=== PATIENT | male | born 1960 | race Caucasian/White ===

== ENCOUNTER 2019-09-18 05:25 | Observation (INO) | payer OTHER ==
[~2019-09-18] VITALS: Ht 180.3 cm; Wt 66.7 kg
[2019-09-18] MEDS ORDERED: CARVEDILOL12.5 MG PO (05:55)
[2019-09-18] MEDS ORDERED: OMEPRAZOLE20 MG PO (05:55)
[2019-09-18 06:33] LABS: BASOPHILS ABSOLUTE AUTO 0.03 K/mm3 (0.00-0.23); BASOPHILS PERCENT AUTO 1 % (0-2); EOSINOPHILS ABSOLUTE AUTO 0.04 K/mm3 (0.00-0.68); EOSINOPHILS PERCENT AUTO 1 % (0-6); Hematocrit 34.6 % (37.0-53.0); Hemoglobin 11.6 g/dL (13.5-17.5); IMMATURE GRAN ABSOLUTE AUTO 0.02 K/mm3 (0.00-0.10); IMMATURE GRAN PERCENT AUTO 0 % (0-1); LYMPHOCYTES ABSOLUTE AUTO 2.34 K/mm3 (0.84-5.20); LYMPHOCYTES PERCENT AUTO 40 % (21-46); MONOCYTES ABSOLUTE AUTO 0.42 K/mm3 (0.16-1.47); MONOCYTES PERCENT AUTO 7 % (4-13); Mean Corpuscular HGB 36.1 pg (26.0-34.0); Mean Corpuscular HGB Conc 33.5 g/dL (31.5-36.5); Mean Corpuscular Volume 108 fL (80-100); Mean Platelet Volume 9.7 fL (9.1-12.4); NEUTROPHILS ABSOLUTE AUTO 3.01 K/mm3 (1.96-9.15); NEUTROPHILS PERCENT AUTO 51 % (41-73); Platelet Count 114 K/mm3 (150-400); RDW Standard Deviation 47.3 fL (35.1-46.3); Red Blood Cell Count 3.21 M/mm3 (4.30-5.90); White Blood Cell Count 5.86 K/mm3 (4.00-11.30)
[2019-09-18 06:48] LABS: Alanine Aminotransfer (ALT/SGP 49 U/L (12-78); Albumin, Blood 3.4 g/dL (3.4-5.0); Alk Phos 49 U/L (50-136); Anion Gap 7 mmol/L (6-16); Aspartate Aminotrans (AST/SGOT 42 U/L (12-37); Bilirubin, Total 0.4 mg/dL (0.1-1.0); Blood Urea Nitrogen 13 mg/dL (8-24); CO2, Blood 24 mmol/L (21-32); Chloride, Blood 112 mmol/L (98-108); Creatinine, Blood 0.72 mg/dL (0.60-1.20); Globulin, Blood 3.4 g/dL (2.2-4.0); Glomerular Filtration Rate >60 (60-); Glucose, Blood 96 mg/dL (70-99); Potassium, Blood 3.9 mmol/L (3.5-5.5); Sodium, Blood 143 mmol/L (136-145); Total Protein, Blood 6.8 g/dL (6.4-8.2)
[2019-09-18 09:10] LABS: Magnesium, Blood 2.2 mg/dL (1.6-2.4)
[2019-09-18 11:56] LABS: U Amphetamine Screen Not Detected; U Barbituate Screen Not Detected; U Benzodiazapine Screen Not Detected; U Buprenorphine Screen Not Detected; U Cannabinoids Screen DETECTED; U Cocaine Screen Not Detected; U Methadone Screen Not Detected; U Methamphetamine Screen Not Detected; U Opiates Screen DETECTED; U Oxycodone Screen Not Detected; U Phencyclidine Screen Not Detected; U Propoxyphene Screen Not Detected
--- NOTE | 2019-09-18 14:45 | NUR ---
History, Chart, Medications and Allergies reviewed before start of procedure.Patient confirms NPO status and agrees with scheduled surgery. VERIFIED LEFT SIDE. EKG DONE PER DR. GILBERT.
--- NOTE | 2019-09-18 18:47 | NUR ---
SHIFT SUMMARY POD 0 S/P ORIF TO LEFT PATELLA. PT ARRIVED FROM PACU AT APPROX 1800 W/ VSS AND A/O. IMMOBILIZER AND KISHOR WRAP IN PLACE. DENIES N/V AND TOLERATING PO INTAKE. PAIN MANAGED WITH 1 PAIN PILL. AWAITING POST VOID. CURRENTLY RESTING IN BED WITH CALL LIGHT IN REACH. WILL CONT. TO MONITOR AND GIVE REPORT TO ONCOMING RN.
--- NOTE | 2019-09-19 04:15 | NUR ---
SHIFT SUMMARY PT IS A/O X4, TOLERATING PO INTAKE AND VOIDING. PT HAS BEEN REPOSITIONED MULTIPLE TIMES THIS SHIFT AND DID STAND AT SIDE OF BED WITH WALKER AND STANDBY ASSIST. IMMOBILIZER HAS BEEN IN PLACE ON LEFT LEG. PT HAS SHOWED NO SIGNS OF ETOH WITHDRAWAL. PAIN HAS BEEN MANAGED WITH PO PAIN MEDS, HOWEVER PT DID REQUIRE A DOSE OF IV PAIN MED FOR BREAKTHROUGH PAIN - SEE EMAR. ASSISTED WITH ADL'S PRN.
[2019-09-19 04:27] LABS: BASOPHILS ABSOLUTE AUTO 0.02 K/mm3 (0.00-0.23); BASOPHILS PERCENT AUTO 0 % (0-2); EOSINOPHILS PERCENT AUTO 0 % (0-6); Hematocrit 27.1 % (37.0-53.0); Hemoglobin 9.3 g/dL (13.5-17.5); IMMATURE GRAN ABSOLUTE AUTO 0.02 K/mm3 (0.00-0.10); IMMATURE GRAN PERCENT AUTO 0 % (0-1); LYMPHOCYTES ABSOLUTE AUTO 1.81 K/mm3 (0.84-5.20); LYMPHOCYTES PERCENT AUTO 30 % (21-46); MONOCYTES ABSOLUTE AUTO 0.66 K/mm3 (0.16-1.47); MONOCYTES PERCENT AUTO 11 % (4-13); Mean Corpuscular HGB 36.5 pg (26.0-34.0); Mean Corpuscular HGB Conc 34.3 g/dL (31.5-36.5); Mean Corpuscular Volume 106 fL (80-100); Mean Platelet Volume 9.9 fL (9.1-12.4); NEUTROPHILS PERCENT AUTO 59 % (41-73); Platelet Count 90 K/mm3 (150-400); RDW Coefficient Variation 11.8 % (11.7-14.2); Red Blood Cell Count 2.55 M/mm3 (4.30-5.90); White Blood Cell Count 6.11 K/mm3 (4.00-11.30)
[2019-09-19 04:58] LABS: Alanine Aminotransfer (ALT/SGP 30 U/L (12-78); Albumin, Blood 2.9 g/dL (3.4-5.0); Alk Phos 41 U/L (50-136); Anion Gap 7 mmol/L (6-16); Aspartate Aminotrans (AST/SGOT 26 U/L (12-37); Bilirubin, Total 0.7 mg/dL (0.1-1.0); Blood Urea Nitrogen 10 mg/dL (8-24); Bun/Creatinine Ratio 14.6 (12.0-20.0); CO2, Blood 27 mmol/L (21-32); Calcium, Blood 7.7 mg/dL (8.5-10.1); Chloride, Blood 102 mmol/L (98-108); Creatinine, Blood 0.69 mg/dL (0.60-1.20); Glomerular Filtration Rate >60 (60-); Glucose, Blood 118 mg/dL (70-99); Potassium, Blood 3.4 mmol/L (3.5-5.5); Sodium, Blood 136 mmol/L (136-145); Total Protein, Blood 5.9 g/dL (6.4-8.2)
[2019-09-19] MEDS ORDERED: Aspir 8181 MG PO (10:23)
[2019-09-19] MEDS ORDERED: Percocet 5-3251 EACH PO (10:25)
--- NOTE | 2019-09-19 15:09 | NUR ---
1450 DISCHARGED TO HOME WITH A FRIEND
== END 2019-09-19 14:50 | disposition home or self-care (01) ==
LOC: ER 05:25 → SURS 05:26 → ER 09:35 → SURS 09:44
PROVIDERS: Emergency Medicine; Nurse Practitioner Acute Care; Orthopaedic Surgery; ADMIT Internal Medicine
PROC: 0QSF04Z Reposition Left Patella with Internal Fixation Device, Open Approach (ICD-10-PCS; principal; 2019-09-18 14:30)
DX: S82.042B Displaced comminuted fracture of left patella, initial encounter for open fracture type I or II (principal); R00.0 Tachycardia, unspecified; D53.9 Nutritional anemia, unspecified; D69.6 Thrombocytopenia, unspecified; F17.210 Nicotine dependence, cigarettes, uncomplicated; F10.20 Alcohol dependence, uncomplicated; Z66 Do not resuscitate; Z79.899 Other long term (current) drug therapy; W19.XXXA Unspecified fall, initial encounter
CPT/HCPCS: 12002; 36415; 73560-LT; 73700; 80053; 82607; 82746; 83690; 83735; 85025; 93005; 93010; 96365-59; 96375-59; 97116; 97161; 99285-25; A9270; C1713; C1769; G0378; J0690; J1100; J1170; J2250; J2370; J2405; J2704; J2710; J3010; J3411; J3475; J7030; J7042; J7120